=== PATIENT | female | born 1995 | race Caucasian/White ===

== ENCOUNTER 2017-11-24 00:27 | Emergency (ER) | payer BC ==
[2017-11-24] MEDS: IBUPROFEN 200 MG TAB PO (02:30)
== END 2017-11-24 04:22 | disposition home or self-care (01) ==
LOC: FTE 00:27
DX: S93.401A Sprain of unspecified ligament of right ankle, initial encounter (principal); X58.XXXA Exposure to other specified factors, initial encounter; Y92.9 Unspecified place or not applicable
CPT/HCPCS: 73610; 73610-RT; 99283-25

== ENCOUNTER 2018-07-18 10:23 | Outpatient (CLI) | payer OTHER | END 2018-07-18 14:24 | disposition home or self-care (01) | LOC: OBT 10:23 → L-D 10:23 → OBT 14:24 | DX: O62.9 Abnormality of forces of labor, unspecified (principal); Z3A.40 40 weeks gestation of pregnancy | CPT/HCPCS: 76815; 76818 ==

== ENCOUNTER 2018-07-20 07:48 | Inpatient (IN) | payer OTHER ==
[2018-07-20] MEDS ORDERED: METHYLERGONOVINE 0.2 MG INJ IM (08:30)
[2018-07-20] MEDS ORDERED: CARBOPROST 250 MCG INJ IM (08:30)
[2018-07-20] MEDS ORDERED: BUTORPHANOL 2 MG INJ IV (08:30)
[2018-07-20] MEDS ORDERED: OXYTOCIN 30 UNITS/LR 500 ML IV (08:30)
[2018-07-20] MEDS ORDERED: MISOPROSTOL 200 MCG TAB PR (08:30)
[2018-07-20] MEDS: LACTATED RINGER'S 1,000 ML IV* ×2 (08:56→15:47)
[2018-07-20 08:57] LABS: ADD MAN DIFF? NO
[2018-07-20] MEDS: LACTATED RINGER'S 1,000 ML IV (09:29)
[2018-07-20 09:47] LABS: BASOPHILS % 0.4 % (0.0-2.0); EOSINOPHILS % 0.2 % (0.0-7.0); HEMATOCRIT 35.4 % (37.0-47.0); HEMOGLOBIN 11.5 g/dl (12.0-16.0); LYMPHOCYTES # 1.9 10^3/ul (0.8-2.9); LYMPHOCYTES % 16.9 % (15.0-51.0); MEAN CORPUSCULAR HEMOGLOBIN 29.3 pg (29.0-33.0); MEAN CORPUSCULAR HGB CONC 32.5 g/dl (32.0-37.0); MEAN CORPUSCULAR VOLUME 90.1 fl (82.0-101.0); MEAN PLATELET VOLUME 11.6 fl (7.4-10.4); MONOCYTES % 8.6 % (0.0-11.0); NEUTROPHIL # 8.3 10^3/ul (1.6-7.5); NEUTROPHILS % 73.5 % (39.0-77.0); PLATELET COUNT 219 10^3/UL (140-415); RED BLOOD COUNT 3.93 10^6/ul (4.20-5.40); RED CELL DISTRIBUTION WIDTH 13.7 % (11.5-14.5)
[2018-07-20 09:47] LABS: WHITE BLOOD COUNT 11.3 10^3/ul (4.8-10.8)
[2018-07-20] MEDS ORDERED: TERBUTALINE 1 ML (10:01)
[2018-07-20 10:07] LABS: HEPATITIS B SURFACE ANTIGEN NEGATIVE (NEGATIVE)
[2018-07-20 10:07] LABS: INR 0.85; PARTIAL THROMBOPLASTIN TIME 28.1 Sec (23.0-35.0); PROTIME 11.7 Sec (11.9-14.9); PT RATIO 0.9
[2018-07-20] MEDS: TERBUTALINE 1 MG/ML INJ SC (10:20)
[2018-07-20] MEDS: MAGNESIUM SULFATE 4 GM/100 ML 100 ML IV (11:06)
[2018-07-20 11:23] LABS: AMPHETAMINE/METHAMPHETAMINE Negative (NEGATIVE); BARBITURATES Negative (NEGATIVE); BENZODIAZEPINES Negative (NEGATIVE); CANNABINOIDS Negative (NEGATIVE); COCAINE Negative (NEGATIVE); OPIATES Negative (NEGATIVE)
[2018-07-20] MEDS ORDERED: FENTAnyl 2MCG/ML-ROPIV 0.2% 100 ML (11:24)
[2018-07-20] MEDS ORDERED: EPHEDrine SULFATE 50 MG/5 ML SYG IV (11:30)
[2018-07-20] MEDS ORDERED: NALOXONE (0.4 MG/ML) INJ IV (11:30)
[2018-07-20] MEDS ORDERED: DIPHENHYDRAMINE 50 MG INJ IV (11:30)
[2018-07-20] MEDS: MAGNESIUM SULFATE 20 GM/500 ML 500 ML IV ×2 (11:32→21:20)
[2018-07-20] MEDS: FENTAnyl 2MCG/ML-ROPIV 0.2% 100 ML BAG EPI ×2 (11:37→21:25)
[2018-07-20 13:33] LABS: MAGNESIUM 4.1 mg/dl (1.7-2.5)
[2018-07-20 15:43] LABS: RAPID PLASMA REAGIN NONREACTIVE (NR)
[2018-07-20 18:36] LABS: MAGNESIUM 5.3 mg/dl (1.7-2.5)
[2018-07-20] MEDS: ONDANSETRON 4 MG INJ IV (19:03)
[2018-07-20] MEDS ORDERED: AMPICILLIN 2 GM/NS (PMX) 100 ML (23:58)
[2018-07-21] MEDS: AMPICILLIN 2 GM/NS (PMX) 100 ML IV (00:04)
[2018-07-21] MEDS ORDERED: LIDOCAINE 0.5% (SDV) 50 ML INJ (00:11)
[2018-07-21] MEDS ORDERED: LIDOCAINE 0.5% (SDV) 50 ML INJ INJ (00:30)
[2018-07-21] MEDS: MINERAL OIL LIGHT 10 ML VIAL TOP ×2 (00:42→01:33)
[2018-07-21] MEDS: LIDOCAINE 0.5% (SDV) 50 ML INJ INFIL (00:42)
[2018-07-21] MEDS: IBUPROFEN 600 MG TAB PO ×4 (01:00→17:16)
[2018-07-21] MEDS: OXYTOCIN 30 UNITS/LR 500 ML IV ×3 (01:01→05:16)
[2018-07-21 01:19] LABS: AADO2 Cord Arterial 656.9 mmHg; Arterial Cord Blood pCO2 38.4 mmHG (25-50); CBA COHb 0.5 %; CBA Oxygen Sat 32.6 mmHG; CBA Total Hemglobin 16.2 g/dl; Cord Blood Arterial pO2 17.7 mmHG (15.0-45.0); Fraction OxyHgb Cord Arterial 31.9 %; MODE MASK - NRB; MetHgb Cord Arterial 1.6 %; Site CORD
[2018-07-21 01:20] LABS: CBV Base Excess -5.6 mmol/L; CBV COHb 0.8 %; CBV Oxygen Sat 33.7 mmHG; CBV Total Hemglobin 16.1 g/dl; Cord Blood Venous AADO2 659.1 mmHg; Cord Blood Venous pO2 17.6 mmHG (15.0-45.0); Fraction OxyHgb Cord Venous 32.8 %; MODE MASK - NRB; Sample Type Blood venous; Site CORD
[2018-07-21] MEDS ORDERED: NACL 0.9% 3 ML SYG IV (01:30)
[2018-07-21] MEDS ORDERED: ZOLPIDEM 5 MG TAB PO (01:30)
[2018-07-21] MEDS ORDERED: CARBOPROST 250 MCG INJ IM (01:30)
[2018-07-21] MEDS ORDERED: OXYTOCIN 30 UNITS/LR 500 ML IV (01:30)
[2018-07-21] MEDS ORDERED: ONDANSETRON 4 MG INJ IV (01:30)
[2018-07-21] MEDS ORDERED: METHYLERGONOVINE 0.2 MG TAB PO (01:30)
[2018-07-21] MEDS ORDERED: DIPHENHYDRAMINE 25 MG CAP PO (01:30)
[2018-07-21] MEDS ORDERED: MISOPROSTOL 200 MCG TAB PR (01:30)
[2018-07-21] MEDS ORDERED: METHYLERGONOVINE 0.2 MG INJ IM (01:30)
[2018-07-21] MEDS: MAGNESIUM SULFATE 20 GM/500 ML 500 ML IV (01:33)
[2018-07-21] MEDS ORDERED: AMPICILLIN 1 GM/NS (PMX) 50 ML IV (04:00)
[2018-07-21 08:20] LABS: HEMATOCRIT 31.2 % (37.0-47.0); HEMOGLOBIN 10.2 g/dl (12.0-16.0)
[2018-07-21] MEDS: WITCH HAZEL/GLYCERIN PAD PR (11:28)
[2018-07-21] MEDS: BENZOCAINE 20% 56 ML SPRAY TOP (11:28)
[2018-07-21] MEDS: SENNA/DOCUSATE NA (8.6MG/50MG) TAB PO ×2 (11:29→21:15)
[2018-07-21] MEDS: IBUPROFEN 200 MG TAB PO ×2 (18:12→23:52)
[2018-07-21] MEDS: CEPHALEXIN 500 MG CAP PO ×2 (18:45→23:52)
[2018-07-22] MEDS: IBUPROFEN 200 MG TAB PO (05:47)
[2018-07-22] MEDS: CEPHALEXIN 500 MG CAP PO ×4 (05:47→23:55)
[2018-07-22 08:19] LABS: ADD MAN DIFF? NO
[2018-07-22 08:20] LABS: BASOPHIL # 0.1 10^3/ul (0.0-0.1); BASOPHILS % 0.4 % (0.0-2.0); EOSINOPHILS # 0.1 10^3/ul (0.0-0.5); HEMATOCRIT 28.6 % (37.0-47.0); HEMOGLOBIN 9.3 g/dl (12.0-16.0); LYMPHOCYTES # 2.2 10^3/ul (0.8-2.9); LYMPHOCYTES % 18.3 % (15.0-51.0); MEAN CORPUSCULAR HEMOGLOBIN 29.4 pg (29.0-33.0); MEAN CORPUSCULAR HGB CONC 32.5 g/dl (32.0-37.0); MEAN CORPUSCULAR VOLUME 90.5 fl (82.0-101.0); MEAN PLATELET VOLUME 11.7 fl (7.4-10.4); MONOCYTES % 8.4 % (0.0-11.0); NEUTROPHIL # 8.5 10^3/ul (1.6-7.5); NEUTROPHILS % 71.3 % (39.0-77.0); PLATELET COUNT 217 10^3/UL (140-415); RED BLOOD COUNT 3.16 10^6/ul (4.20-5.40); RED CELL DISTRIBUTION WIDTH 14.3 % (11.5-14.5)
[2018-07-22 08:20] LABS: WHITE BLOOD COUNT 11.9 10^3/ul (4.8-10.8)
[2018-07-22] MEDS: SENNA/DOCUSATE NA (8.6MG/50MG) TAB PO ×2 (08:27→21:28)
[2018-07-22] MEDS: LANOLIN 7 GM TUBE TOP (08:27)
[2018-07-22] MEDS: IBUPROFEN 600 MG TAB PO ×3 (11:59→23:55)
[2018-07-22] MEDS: HYDROCODONE/APAP (5/325) TAB PO (21:36)
[2018-07-23] MEDS: CEPHALEXIN 500 MG CAP PO ×2 (05:43→12:29)
[2018-07-23] MEDS: IBUPROFEN 600 MG TAB PO ×2 (05:43→12:29)
[2018-07-23] MEDS: DIPHTH/TET/ACEL PERTUSS (ADULT) 0.5 ML VIAL IM* (09:00)
[2018-07-23] MEDS: VARICELLA VACCINE LIVE/PF 1,350 UNIT/0.5 ML ML SC* (09:59)
[2018-07-23] MEDS: MEASLES,MUMPS,RUBELLA VACCINE INJ SC* (09:59)
[2018-07-23] MEDS: SENNA/DOCUSATE NA (8.6MG/50MG) TAB PO (12:30)
== END 2018-07-23 15:45 | disposition home or self-care (01) | DRG 806 ==
LOC: OBT 07:48 → L-D 07-21 08:18 → PP1 07-21 16:50 → OBT 08:10 → L-D 08:10
PROC: 3E0E7GC Introduction of Other Therapeutic Substance into Products of Conception, Via Natural or Artificial Opening (ICD-10-PCS; 2018-07-20)
PROC: 10E0XZZ Delivery of Products of Conception, External Approach (ICD-10-PCS; principal; 2018-07-21)
PROC: 0HQ9XZZ Repair Perineum Skin, External Approach (ICD-10-PCS; 2018-07-21)
DX: O76 Abnormality in fetal heart rate and rhythm complicating labor and delivery (principal); O71.7 Obstetric hematoma of pelvis; Z37.0 Single live birth; O70.0 First degree perineal laceration during delivery; Z3A.40 40 weeks gestation of pregnancy
CPT/HCPCS: 36415; 36600; 62319; 80307; 82803; 83735; 85014; 85018; 85025; 85610; 85730; 86592; 86850; 86900; 86901; 87086; 87340; 88307; 90686; 90715; 90716; 99464